=== PATIENT | female | born 1945 | race Caucasian/White ===

== ENCOUNTER → 2017-04-25 | Outpatient (CLI) | payer OTHER ==
[~2017-04-25] MED LIST: ARTIOIN27 OPB; CARBSOL4 OP; DXY100 PO; LYSI500C2 PO; OMEG10007 PO; [UNRECOGNIZED DRUG - CODE] TOP
--- NOTE | 2017-04-25 15:20 | DIAGNOSTIC IMAGING REPORT ---
PELVIS BILATERAL HIP 2 CLINICAL HISTORY: 72 years-old Female presenting with B/L HIP PAIN. TECHNIQUE: Single frontal view of the pelvis as well as frontal and crosstable lateral views of the bilateral hips were obtained. COMPARISON: 04/10/2015. FINDINGS: Previously noted peripherally sclerotic lesion in the right femoral neck measuring proximally 4 cm is not significantly changed since the prior exam, consistent with a benign etiology. Osseous pelvis intact. Pubic symphysis and sacroiliac joints intact. Degenerative changes of the lower lumbar spine. Hip joints congruent. No acute fracture or subluxation. No joint space loss or advanced degenerative change. Moderate stool burden. IMPRESSION: 1. No acute osseous injury of the pelvis or hips. 2. Stable sclerotic lesion in the right femoral neck, unchanged since 2014 consistent with benign etiology. Electronically signed by: Sebastian Huitron M.D. 04/25/2017 3:18 PM Dictated Date/Time: 04/25/2017 3:15 PM
== END | disposition home or self-care (01) ==
LOC: C.RDSM 14:37
PROVIDERS: ATTEND Physician Assistant
DX: M25.559 Pain in unspecified hip (principal)